=== PATIENT | male | born 1960 | race Caucasian/White ===

== ENCOUNTER 2022-09-29 18:01 | Emergency (ER) | payer MEDICARE, MEDICAID ==
[~2022-09-29] VITALS: Ht 182.9 cm; Wt 93.0 kg
[~2022-09-29 18:01] MED LIST: ATOR20TA65 PO; BENZ2TAB7 PO; FINA5TAB3 PO; LAM25 MT; LEVO100T9 MT; LORA-249 MT; LORA10TA7 PO; MELA5TAB3 MT; RISP2TAB85 PO; TAMS-11 PO
[2022-09-29] MEDS ORDERED: MIDAZOLAM HCL 2 MG/2 ML VIAL IM ONE ×2 (21:00→23:45)
[2022-09-29] MEDS ORDERED: OLANZAPINE 10 MG/VIAL IM ONE (21:00)
[2022-09-29] MEDS ORDERED: DIPHENHYDRAMINE 50MG/ML VIAL IM SCH (23:45)
[2022-09-30 10:36] VITALS: BP 147/67
[2022-09-30 12:40] LABS: CLARITY URINE CLOUDY (CLEAR); COLOR URINE YELLOW (YELLOW); KETONES URINE NEGATIVE (NEGATIVE); LEUKOCYTE ESTERASE URINE 3+ (NEGATIVE); NITRITE URINE POSITIVE (NEGATIVE); OCCULT BLOOD URINE TRACE (NEGATIVE); PROTEIN URINE NEGATIVE (NEGATIVE); SPECIFIC GRAVITY URINE 1.007 (1.005-1.030); UROBILINOGEN URINE 0.2 E.U./dL (0.2-1.0)
[2022-09-30] MEDS ORDERED: CEPH500T MT (14:05)
== END 2022-09-30 14:24 ==
LOC: ER 18:01
DX: R45.1 Restlessness and agitation (principal); Z79.899 Other long term (current) drug therapy
CPT/HCPCS: 81003; 87086; 96372; 99284; J1200; J2250; J3490; A4315